=== PATIENT | male | born 1955 | race Caucasian/White ===

== ENCOUNTER 2016-07-13 16:13 | Emergency (ER) | payer MEDICAID ==
[~2016-07-13] VITALS: Ht 175.3 cm; Wt 83.9 kg
[2016-07-13 16:13] VITALS: BP_SYST 143
[2016-07-13 16:49] LABS: BASOPHILS % (AUTO) 0.3 % (0.0-2.0); EOSINOPHILS # (AUTO) 0.2 K/uL (0.0-0.4); EOSINOPHILS % (AUTO) 3.6 % (0.0-4.0); HEMOGLOBIN 13.3 g/dL (14.0-18.0); LYMPHOCYTES # (AUTO) 1.9 K/uL (1.0-5.5); LYMPHOCYTES % (AUTO) 31.7 % (20.5-51.5); MEAN CORPUSCULAR HEMOGLOBIN 29 pg (27-31); MEAN CORPUSCULAR HGB CONC 33 % (32-36); MEAN CORPUSCULAR VOLUME 86 fL (79.0-98.0); MONOCYTES # (AUTO) 0.4 K/uL (0.0-1.0); MONOCYTES % (AUTO) 6.7 % (1.7-9.3); NEUTROPHILS # (AUTO) 3.5 K/uL (1.8-7.7); NEUTROPHILS % (AUTO) 57.7 % (40.0-70.0); PLATELET COUNT (AUTO) 261 K/uL (130-430); RED BLOOD CELL COUNT(AUTO) 4.67 MIL/uL (4.2-6.2); RED CELL DISTRIBUTION WIDTH 13.4 % (9.0-15.0)
[2016-07-13 16:57] LABS: CALCIUM 8.6 mg/dL (8.4-11.0); CREATININE 1.07 mg/dL (0.55-1.30); POTASSIUM 4.4 mmol/L (3.5-5.1)
[2016-07-13 17:02] LABS: ALBUMIN 3.3 g/dL (3.4-4.8); TOTAL BILIRUBIN 0.3 mg/dL (0.0-1.0); TOTAL PROTEIN, SERUM 7.4 g/dL (6.4-8.3)
[2016-07-13 17:34] LABS: THYROID STIMULATING HORMONE 1.19 uIu/mL (0.34-4.82)
[2016-07-13 18:05] LABS: FREE T4 (FREE THYROXINE) 0.9 ng/dL (0.6-1.6)
== END 2016-07-13 17:58 | disposition home or self-care (01) ==
LOC: SED 16:13
DX: J44.0 Chronic obstructive pulmonary disease with (acute) lower respiratory infection (principal); J40 Bronchitis, not specified as acute or chronic; F17.200 Nicotine dependence, unspecified, uncomplicated; Z87.442 Personal history of urinary calculi; Z71.6 Tobacco abuse counseling
CPT/HCPCS: 36415; 71010; 80053; 82550-TC; 83880; 84439; 84443-TC; 84484; 85025; 85610-TC; 85730-TC; 93005; 99285

== ENCOUNTER 2016-12-12 16:03 | Emergency (ER) | payer MEDICAID ==
[~2016-12-12] VITALS: Ht 175.3 cm; Wt 90.7 kg
--- NOTE | 2016-12-12 16:03 | NUR ---
Patient to ER bed H1 to gown for evaluation. Side rails up.
--- NOTE | 2016-12-12 16:05 | NUR ---
Dr Ledezma at bedside examining patient
--- NOTE | 2016-12-12 16:06 | NUR ---
Pt brought by self, A&Ox4, pt c/o SOB and back pain, VS WNL, cap refill <3, skin pink and warm, Hx of COPD 02 94%.
[2016-12-12 16:12] VITALS: BP_SYST 143
[2016-12-12] MEDS ORDERED: IPRATROPIUM BROM 0.5 MG/2.5 ML VIAL.NEB (ATROVENT) INH ONE (16:30)
[2016-12-12] MEDS ORDERED: ALBUTEROL SULFATE 0.083% 2.5 MG/3 ML VIAL.NEB INH ONE ×2 (16:30→16:33)
--- NOTE | 2016-12-12 16:30 | NUR ---
Sitting in chair, RT at bedside for breathing tx.
--- NOTE | 2016-12-12 17:05 | NUR ---
Pt states relief after breathing tx.
[2016-12-12] MEDS ORDERED: KETOROLAC TROMETHAMINE 60 MG/2 ML VIAL IM ONE (17:15)
--- NOTE | 2016-12-12 17:23 | NUR ---
Medicated for pain per MD orders. Pt tolerated well.
--- NOTE | 2016-12-12 17:24 | NUR ---
Pt provided with dinner tray as requested. Sitting up in chair eating independently
--- NOTE | 2016-12-12 18:15 | NUR ---
No medication reaction to meds given in ED
[2016-12-12 18:23] VITALS: BP_SYST 139
--- NOTE | 2016-12-12 18:23 | NUR ---
Patient given written and verbal discharge instructions and verbalizes understanding. ER MD discussed with patient the results and treatment provided. Patient in stable condition. ID arm band removed. Rx of NORCO 10/325 given. Patient educated on pain management and to follow up with PMD. Pain Scale 2/10. Opportunity for questions provided and answered.
--- NOTE | 2016-12-13 16:02 | NUR ---
Pharmacy verification
== END 2016-12-12 18:23 | disposition home or self-care (01) ==
LOC: SED 16:03
DX: J45.909 Unspecified asthma, uncomplicated (principal); M54.5 Low back pain; Z87.442 Personal history of urinary calculi; Z98.890 Other specified postprocedural states
CPT/HCPCS: 71010; 94640; 96372; 99283; J1885

== ENCOUNTER 2017-01-11 18:39 | Emergency (ER) | payer MEDICAID ==
[~2017-01-11] VITALS: Ht 175.3 cm; Wt 95.3 kg
[2017-01-11 18:49] VITALS: BP_SYST 121
[2017-01-11] MEDS ORDERED: DIPH-TET-PERTUS Vaccine 0.5 ML VIAL (ADACEL) I.M. ONE (20:15)
[2017-01-11] MEDS ORDERED: MORPHINE SULFATE 10 MG/ML VIAL IM ONE (20:15)
[2017-01-11] MEDS ORDERED: DIPHENHYDRAMINE INJ 50 MG/ML VIAL IM ONE (20:15)
[2017-01-11] MEDS ORDERED: CYCLOBENZAPRINE HCL 10 MG TABLET (FLEXERIL) PO ONE (20:15)
[2017-01-11] MEDS ORDERED: BACITRACIN 1 GM OINT TP ONE (20:15)
[2017-01-11 21:35] VITALS: BP_SYST 123
== END 2017-01-11 21:35 | disposition home or self-care (01) ==
LOC: SED 18:39
DX: S39.012A Strain of muscle, fascia and tendon of lower back, initial encounter (principal); S80.212A Abrasion, left knee, initial encounter; S80.211A Abrasion, right knee, initial encounter; J44.9 Chronic obstructive pulmonary disease, unspecified; R03.0 Elevated blood-pressure reading, without diagnosis of hypertension; W01.0XXA Fall on same level from slipping, tripping and stumbling without subsequent striking against object, initial encounter; Y93.89 Activity, other specified; Y92.89 Other specified places as the place of occurrence of the external cause; Y99.8 Other external cause status
CPT/HCPCS: 72131; 73564; 90471; 90715; 96372; 99284; J1200; J2270

== ENCOUNTER 2017-11-21 23:09 | Inpatient (IN) | payer OTHER, MEDICAID ==
[~2017-11-21] VITALS: Ht 175.3 cm; Wt 111.6 kg
[2017-11-22 00:01] VITALS: BP_SYST 133
[2017-11-22] MEDS ORDERED: NACL 0.9% 1,000 ML IV ONE (00:34)
[2017-11-22] MEDS ORDERED: VANCOMYCIN HCL 1,000 MG in D5W 250 ML IV ONE (00:45)
[2017-11-22] MEDS ORDERED: cefTRIAXone 1 GM IVPB PREMIX 50 ML IV ONE (00:45)
[2017-11-22] MEDS ORDERED: VANCOMYCIN HCL 1000 MG/VIAL IV ONE (01:05)
[2017-11-22 01:42] LABS: BASOPHILS % (AUTO) 0.1 % (0.0-2.0); EOSINOPHILS # (AUTO) 0.2 K/uL (0.0-0.4); EOSINOPHILS % (AUTO) 2.7 % (0.0-4.0); HEMATOCRIT 37.3 % (36-54); LYMPHOCYTES # (AUTO) 1.5 K/uL (1.0-5.5); LYMPHOCYTES % (AUTO) 17.6 % (20.5-51.5); MEAN CORPUSCULAR HEMOGLOBIN 28 pg (27-31); MEAN CORPUSCULAR HGB CONC 32 % (32-36); MEAN CORPUSCULAR VOLUME 85 fL (79.0-98.0); MONOCYTES # (AUTO) 0.6 K/uL (0.0-1.0); MONOCYTES % (AUTO) 6.5 % (1.7-9.3); NEUTROPHILS # (AUTO) 6.2 K/uL (1.8-7.7); NEUTROPHILS % (AUTO) 73.1 % (40.0-70.0); PLATELET COUNT (AUTO) 260 K/uL (130-430); RED BLOOD CELL COUNT(AUTO) 4.36 MIL/uL (4.2-6.2); WHITE BLOOD COUNT (AUTO) 8.5 K/uL (4.8-10.8)
[2017-11-22 01:49] LABS: CALCIUM 8.7 mg/dL (8.4-11.0); CREATININE 1.06 mg/dL (0.55-1.30); POTASSIUM 4.3 mmol/L (3.5-5.1)
[2017-11-22] MEDS ORDERED: HYDR-2489 PO (01:50)
[2017-11-22] MEDS ORDERED: MET10 PO (01:50)
[2017-11-22 01:53] LABS: PROTHROMBIN TIME 10.2 SECS (9.5-12.5)
[2017-11-22 01:55] LABS: ALBUMIN 2.9 g/dL (3.4-4.8); TOTAL BILIRUBIN 0.4 mg/dL (0.0-1.0)
[2017-11-22 03:15] VITALS: BP_SYST 144
[2017-11-22 04:04] LABS: BILIRUBIN,URINE NEGATIVE (NEGATIVE); BLOOD, URINE NEGATIVE (NEGATIVE); CLARITY/URINE CLEAR (CLEAR); COLOR,URINE YELLOW (YELLOW); GLUCOSE,URINE NEGATIVE (NEGATIVE); KETONES,URINE NEGATIVE (NEGATIVE); LEUKOCYTE ESTERASE ,URINE NEGATIVE (NEGATIVE); NITRITE, URINE NEGATIVE (NEGATIVE); PROTEIN URINE NEGATIVE (NEGATIVE); UROBILINOGEN,URINE 0.2 (0.2-1.0)
[2017-11-22] MEDS: NACL 0.9% 1,000 ML IV SCH ×2 (04:24→15:18)
[2017-11-22] MEDS: HYDROcodone/ACETAMIN 10-325 MG TAB PO PRN ×3 (04:50→18:34)
[2017-11-22 08:20] VITALS: BP_SYST 143
[2017-11-22] MEDS ORDERED: METHADONE HCL 10 MG TABLET PO ONE (09:15)
[2017-11-22] MEDS: VANCOMYCIN HCL 1,500 MG in NS 250 ML IV SCH ×2 (10:36→21:55)
[2017-11-22 11:24] VITALS: BP_SYST 144
[2017-11-22 15:52] VITALS: BP_SYST 116
[2017-11-22 20:39] VITALS: BP_SYST 157
[2017-11-22] MEDS ORDERED: cefTRIAXone 1 GM in D5W 50 ML IV SCH (21:00)
[2017-11-23 00:18] VITALS: BP_SYST 145
[2017-11-23] MEDS: NACL 0.9% 1,000 ML IV SCH ×2 (04:00→11:03)
[2017-11-23 08:40] VITALS: BP_SYST 155
[2017-11-23] MEDS: METHADONE HCL 10 MG TABLET PO SCH (08:40)
[2017-11-23] MEDS ORDERED: NICOTINE 7 MG/24 HR PATCH.TD24 TD ONE (10:15)
[2017-11-23 10:45] LABS: BASOPHILS # (AUTO) 0.1 K/uL (0.0-0.2); BASOPHILS % (AUTO) 1.1 % (0.0-2.0); EOSINOPHILS # (AUTO) 0.2 K/uL (0.0-0.4); EOSINOPHILS % (AUTO) 2.1 % (0.0-4.0); HEMATOCRIT 39.3 % (36-54); HEMOGLOBIN 12.9 g/dL (14.0-18.0); LYMPHOCYTES # (AUTO) 0.8 K/uL (1.0-5.5); LYMPHOCYTES % (AUTO) 10.5 % (20.5-51.5); MEAN CORPUSCULAR HEMOGLOBIN 28 pg (27-31); MEAN CORPUSCULAR HGB CONC 33 % (32-36); MEAN CORPUSCULAR VOLUME 85 fL (79.0-98.0); MONOCYTES # (AUTO) 0.2 K/uL (0.0-1.0); MONOCYTES % (AUTO) 3.3 % (1.7-9.3); PLATELET COUNT (AUTO) 274 K/uL (130-430); RED CELL DISTRIBUTION WIDTH 13.7 % (9.0-15.0); WHITE BLOOD COUNT (AUTO) 7.3 K/uL (4.8-10.8)
[2017-11-23 10:59] LABS: CALCIUM 8.8 mg/dL (8.4-11.0); CREATININE 0.77 mg/dL (0.55-1.30); POTASSIUM 3.6 mmol/L (3.5-5.1)
[2017-11-23] MEDS: VANCOMYCIN HCL 1,500 MG in NS 250 ML IV SCH ×2 (11:04→21:14)
[2017-11-23 12:30] VITALS: BP_SYST 147
[2017-11-23] MEDS: HYDROcodone/ACETAMIN 10-325 MG TAB PO PRN ×2 (13:29→20:37)
[2017-11-23 16:21] VITALS: BP_SYST 145
[2017-11-23 20:00] VITALS: BP_SYST 129
[2017-11-24] VITALS: BP_SYST 125
[2017-11-24] MEDS: METHADONE HCL 10 MG TABLET PO SCH (07:50)
[2017-11-24] MEDS: NACL 0.9% 1,000 ML IV SCH (07:53)
[2017-11-24 08:12] VITALS: BP_SYST 141
[2017-11-24] MEDS ORDERED: NICOTINE 7 MG/24 HR PATCH.TD24 TD SCH (09:00)
[2017-11-24] MEDS ORDERED: SULF1TAB48 PO (10:32)
[2017-11-24 10:44] VITALS: BP_SYST 141
[2017-11-24] MEDS: VANCOMYCIN HCL 1,500 MG in NS 250 ML IV SCH (11:31)
== END 2017-11-24 14:03 | disposition home or self-care (01) | DRG 603 ==
LOC: SED 23:09 → SMU 11-22 02:30
PROVIDERS: ADMIT General Practice; ATTEND General Practice
DX: L03.114 Cellulitis of left upper limb (principal); E44.0 Moderate protein-calorie malnutrition; E87.1 Hypo-osmolality and hyponatremia; L02.512 Cutaneous abscess of left hand; G89.29 Other chronic pain; J44.9 Chronic obstructive pulmonary disease, unspecified; F17.210 Nicotine dependence, cigarettes, uncomplicated; D64.9 Anemia, unspecified; E66.9 Obesity, unspecified; Z68.36 Body mass index [BMI] 36.0-36.9, adult; Z87.442 Personal history of urinary calculi; Z79.891 Long term (current) use of opiate analgesic
CPT/HCPCS: 36415; 80048; 80053; 81003; 83605; 83690-TC; 83735-TC; 85025; 85610-TC; 85730-TC; 87040-TC; 93971; 96365; 96366; 96367; 99285; J0696; J3370; J7030; J7050

== ENCOUNTER 2019-12-04 07:42 | Emergency (ER) | payer OTHER, MEDICAID, SELFPAY ==
[~2019-12-04] VITALS: Ht 177.8 cm; Wt 104.3 kg
[2019-12-04 07:42] VITALS: BP_SYST 161
[~2019-12-04 07:42] MED LIST: HYDR-4274 PO; MET10 PO; SULF1TAB48 PO
--- NOTE | 2019-12-04 07:42 | NUR ---
Placed in room 7. Placed on diamond selector, blood pressure machine and pulse oximeter. To gown for exam. Side rails up. Report given to MARY Dixon.
--- NOTE | 2019-12-04 07:44 | NUR ---
Patient arrived in the ED c/o right arm pain and shortness of breath for the last 3 days. Denied any chest pain. Denied any fevers, chills, nausea or vomiting. Patient is alert and oriented x4, respirations even and unlabored, speaking in full sentences, and ambulating with a steady gait. VSS, pain level 5/10 - Taking Ibuprofen for it. Informed of the approximate wait time. Instructed to notify ED staff for any changes in condition or worsening of symptoms while waiting to be seen by an ED provider. Patient verbalized understanding.
--- NOTE | 2019-12-04 07:49 | NUR ---
ECG done at bedside as ordered by Dr. Baca. Patient tolerated the procedure well. ER Physician given copy of EKG for review.
--- NOTE | 2019-12-04 07:57 | NUR ---
ER Dr. Baca at bedside examining patient.
[2019-12-04 08:28] LABS: BASOPHILS % (AUTO) 0.4 % (0.0-2.0); EOSINOPHILS # (AUTO) 0.2 K/uL (0.0-0.4); EOSINOPHILS % (AUTO) 2.8 % (0.0-4.0); HEMATOCRIT 42.9 % (36-54); HEMOGLOBIN 14.7 g/dL (14.0-18.0); LYMPHOCYTES # (AUTO) 1.7 K/uL (1.0-5.5); LYMPHOCYTES % (AUTO) 31.9 % (20.5-51.5); MEAN CORPUSCULAR HEMOGLOBIN 30 pg (27-31); MEAN CORPUSCULAR HGB CONC 34 % (32-36); MEAN CORPUSCULAR VOLUME 87 fL (79.0-98.0); MONOCYTES # (AUTO) 0.4 K/uL (0.0-1.0); MONOCYTES % (AUTO) 7.1 % (1.7-9.3); NEUTROPHILS # (AUTO) 3.1 K/uL (1.8-7.7); NEUTROPHILS % (AUTO) 57.8 % (40.0-70.0); PLATELET COUNT (AUTO) 210 K/uL (130-430); RED BLOOD CELL COUNT(AUTO) 4.95 MIL/uL (4.2-6.2); RED CELL DISTRIBUTION WIDTH 14.8 % (9.0-15.0); WHITE BLOOD COUNT (AUTO) 5.3 K/uL (4.8-10.8)
--- NOTE | 2019-12-04 08:37 | NUR ---
X-ray done at bedside as ordered by Dr. Baca. Patient tolerated the procedure well.
[2019-12-04 08:38] LABS: INR 1.1 (0.80-1.20); PROTHROMBIN TIME 10.6 SECS (9.5-12.5)
[2019-12-04 08:40] LABS: CALCIUM 9.4 mg/dL (8.4-11.0); CREATININE 1.01 mg/dL (0.55-1.30); POTASSIUM 3.8 mmol/L (3.5-5.1)
[2019-12-04 08:46] LABS: ALBUMIN 3.2 g/dL (3.4-4.8); TOTAL BILIRUBIN 0.4 mg/dL (0.0-1.0)
--- NOTE | 2019-12-04 08:49 | NUR ---
Patient is taken to CT via gurney, in stable condition.
--- NOTE | 2019-12-04 09:03 | NUR ---
Patient is back from CT in stable condition.
--- NOTE | 2019-12-04 09:55 | NUR ---
ER Dr. Baca at bedside re-examining patient and discussing the plan of care.
--- NOTE | 2019-12-04 09:59 | NUR ---
Patient is swabbed for rapid Covid test.
--- NOTE | 2019-12-04 11:18 | NUR ---
Spoke with Dion mao [facility] for Covid results. Still waiting for bed number.
--- NOTE | 2019-12-04 11:22 | NUR ---
Patient is resting comfortably in bed, respirations even and unlabored.
--- NOTE | 2019-12-04 11:52 | NUR ---
TRANSFER INFO [facility] Dr. Smith [facility] TELE 6 RM: 383H Report: [phone] will call for ambulance for transport. spoke to Jj.
[2019-12-04] MEDS ORDERED: NICOTINE 21 MG/24 HR PATCH.TD24 TD SCH (12:15)
--- NOTE | 2019-12-04 12:28 | NUR ---
Administered Nicotine TD as ordered by Dr. Baca. Patient tolerated the medications well. See eMAR for details.
--- NOTE | 2019-12-04 12:35 | NUR ---
Report given to MARY Dixon of [facility] at [phone].
[2019-12-04 12:49] VITALS: BP_SYST 146
--- NOTE | 2019-12-04 12:50 | NUR ---
Patient to be transferred to [facility]. Is being transferred due to higher level of care. Receiving facility has accepting physician and available space. ER physician has signed transfer form. Patient or responsible republican has agreed to transfer and signed form. Patient belongings inventoried and will be sent with patient. Copy of nursing notes, lab reports, EKG, Physicians Orders and X-rays to be sent with patient. Report called to MARY Dixon at receiving facility. Receiving physician is Dr. Smith. [facility] ambulance service has been called for transfer. ETA is now.
== END 2019-12-04 12:50 | disposition short-term general hospital (02) ==
LOC: SED 07:42
DX: D49.6 Neoplasm of unspecified behavior of brain (principal); J44.9 Chronic obstructive pulmonary disease, unspecified; F11.90 Opioid use, unspecified, uncomplicated; Z87.442 Personal history of urinary calculi; Z79.899 Other long term (current) drug therapy
CPT/HCPCS: 36415; 70450-TC; 71045; 80053; 82962; 84484; 85025; 85610-TC; 85730-TC; 93005; 99291

== ENCOUNTER 2019-12-12 14:14 | Emergency (ER) | payer OTHER, MEDICAID ==
[2019-12-12 14:19] VITALS: BP_SYST 164
--- NOTE | 2019-12-12 15:02 | NUR ---
Pt arrived BLS due to HTN since today and intermittent tingling on R arm , pt states he had a possible TIA and was seen at [place] on wednesday/wednesday , pt respirations even and unlabored, cap refill <3, pt current BP 163/80, no facial drop noted, intact ROM,intact speech , strong forge press operator, steady gait, skin pink and warm, will cont to monitor.
--- NOTE | 2019-12-12 15:12 | NUR ---
Pt insist he wants to go to the waiting room with his , BP 163/80, Dr Bernabe notified, Dr Bernabe agreeable pt can wait in the waiting room.
--- NOTE | 2019-12-12 15:30 | NUR ---
Pt on stable condition, no s/s of distress, steady gait, respirations even and unlabored, A&Ox4.
[2019-12-12 15:32] LABS: BASOPHILS # (AUTO) 0.1 K/uL (0.0-0.2); BASOPHILS % (AUTO) 0.7 % (0.0-2.0); EOSINOPHILS % (AUTO) 0.6 % (0.0-4.0); HEMATOCRIT 42.8 % (36-54); HEMOGLOBIN 14.5 g/dL (14.0-18.0); LYMPHOCYTES # (AUTO) 1.5 K/uL (1.0-5.5); LYMPHOCYTES % (AUTO) 18.8 % (20.5-51.5); MEAN CORPUSCULAR HEMOGLOBIN 30 pg (27-31); MEAN CORPUSCULAR HGB CONC 34 % (32-36); MEAN CORPUSCULAR VOLUME 88 fL (79.0-98.0); MONOCYTES # (AUTO) 0.3 K/uL (0.0-1.0); MONOCYTES % (AUTO) 4.2 % (1.7-9.3); NEUTROPHILS % (AUTO) 75.7 % (40.0-70.0); PLATELET COUNT (AUTO) 238 K/uL (130-430); RED BLOOD CELL COUNT(AUTO) 4.87 MIL/uL (4.2-6.2); RED CELL DISTRIBUTION WIDTH 14.9 % (9.0-15.0)
--- NOTE | 2019-12-12 15:48 | NUR ---
Patient arrived in the ED c/o high blood pressure. Denied any chest pain or shortness of breath. Denied any fevers, chills, nausea or vomiting. Patient is alert and oriented x4, respirations even and unlabored, speaking in full sentences, and ambulating with a steady gait. VSS, pain level 0/10. Informed of the approximate wait time. Instructed to notify ED staff for any changes in condition or worsening of symptoms while waiting to be seen by an ED provider. Patient verbalized understanding.
[2019-12-12 16:03] LABS: PROTHROMBIN TIME 10.4 SECS (9.5-12.5)
[2019-12-12 16:08] LABS: ANION GAP 7 (5-15); CALCIUM 9.1 mg/dL (8.4-11.0); CHLORIDE 104 mmol/L (98-107); CREATININE 0.96 mg/dL (0.55-1.30); GLUCOSE 112 mg/dL (70-99); POTASSIUM 4.1 mmol/L (3.5-5.1); SODIUM SERUM 139 mmol/L (136-145); UREA NITROGEN, BLOOD 24 mg/dL (8-21)
[2019-12-12 16:22] LABS: GFR AFRICAN AMERICAN 101 mL/min (>90)
--- NOTE | 2019-12-12 17:20 | NUR ---
Patient given written and verbal discharge instructions and verbalizes understanding. ER MD discussed with patient the results and treatment provided. Patient in stable condition. ID arm band removed. Rx of HCTZ given. Patient educated on pain management and to follow up with PMD. Pain Scale 0/10. Opportunity for questions provided and answered. Medication side effect fact sheet provided.
[2019-12-12 17:21] VITALS: BP_SYST 138
== END 2019-12-12 17:21 | disposition home or self-care (01) ==
LOC: SED 14:14
DX: I10 Essential (primary) hypertension (principal); J44.9 Chronic obstructive pulmonary disease, unspecified; Z87.442 Personal history of urinary calculi; Z79.899 Other long term (current) drug therapy
CPT/HCPCS: 36415; 80048; 84484; 85025; 85610-TC; 85730-TC; 93005; 99284